=== PATIENT | male | born 1980 ===

== ENCOUNTER 2020-09-28 07:54 | Day surgery (SDC) | payer MEDICARE, MEDICAID ==
--- NOTE | 2020-09-27 15:12 | PCM.PREANE ---
Preanesthetic Assessment - Procedure Proposed Procedure: Left thumb cyst excision - Anesthesia/Transfusion/Family Hx Anesthesia History: Prior Anesthesia Without Reaction Family History of Anesthesia Reaction: No Transfusion History: No Prior Transfusion(s) Intubation History: Unknown - Review of Systems General: No Symptoms Pulmonary: No Symptoms Cardiovascular: No Symptoms Gastrointestinal: No Symptoms Neurological: No Symptoms Other: Reports: None - Physical Assessment NPO Status Date: 10/29/19 NPO Status Time: 22:00 Vital Signs: 132/86 100% RA 97.3 20 HR 74 Height: 1.68 m Weight: 64.5 kg ASA Class: 1 Mental Status: Alert & Oriented x3 Thyro-Mental Finger Breadths: 2 Mouth Opening Finger Breadths: 2 ROM/Head Extension: Full Lungs: Clear to Auscultation, Normal Respiratory Effort Cardiovascular: Regular Rate, Regular Rhythm - Allergies Allergies/Adverse Reactions: Allergies Allergy/AdvReac Type Severity Reaction Status Date / Time No Known Allergies Allergy Verified 09/27/20 14:20 - Blood Blood Available: No Product(s) Available: None - Anesthesia Plan Pre-Op Medication Ordered: None - Acknowledgements Anesthesia Type Planned: RUBIN, MAC Pt an Appropriate Candidate for the Planned Anesthesia: Yes Alternatives and Risks of Anesthesia Discussed w Pt/Guardian: Yes Pt/Guardian Understands and Agrees with Anesthesia Plan: Yes PreAnesthesia Questionnaire HEENT History: Reports: Impaired Vision Other HEENT History: Blind Gastrointestinal History: Reports: GERD - Past Surgical History HEENT Surgical History: Reports: Oral Surgery - SUBSTANCE USE Tobacco Use Status *Q: Never Tobacco User Tobacco Use Within Last Twelve Months: No Second Hand Smoke Exposure: No Days Per Week of Alcohol Use: 0 Number of Drinks Per Day: 0 Total Drinks Per Week: 0 Recreational Drug Use History: No - CURRENT (IN HOUSE) MEDS Current Meds: Current Medications Lactated Ringer's (Ringers, Lactated) 1,000 mls @ 125 mls/hr IV ASDIRECTED AMANDA Stop: 09/28/20 23:00 Lidocaine/Sodium Bicarbonate (Lidocaine 1%/Sod Bicarbonate In Ns 8.4% 1 Ml Syringe) 0.25 ml IDERM ONETIME PRN PRN Reason: Prior to IV Start Stop: 09/28/20 18:00 Sodium Chloride (Sodium Chloride 0.9% 10 Ml Syringe) 10 ml FLUSH ASDIRECTED PRN PRN Reason: Keep Vein Open Stop: 09/28/20 18:00
[~2020-09-28 07:54] MED LIST: Lactated Ringers 1,000 ML IV SCH; Lidocaine 0.5% 50 ML SDV ONE; Lidocaine 1%/Sod Bicarbonate in NS 8.4% 1 ML Syringe IDERM PRN; Midazolam 1 MG/ML 2 ML SDV ONE; Propofol 200 MG/20 ML SDV ONE; Sodium Bicarbonate 8.4% 50 MEQ/50 ML SDV ONE; Sodium Chloride 0.9% 10 ML Syringe FLUSH PRN; fentaNYL 100 MCG/2 ML SDV ONE
[2020-09-28] MEDS ORDERED: Bupivacaine 0.25% 10 ML SDV ONE ×2 (09:15→10:05)
[2020-09-28] MEDS ORDERED: ceFAZolin 1 GM Vial ONE (09:58)
[2020-09-28] MEDS ORDERED: Lactated Ringers 1,000 ML ONE (10:19)
--- NOTE | 2020-09-28 10:37 | PCM48HPAN ---
Post Anesthesia Note - EVALUATION WITHIN 48HRS OF ANESTHETIC Vital Signs in Normal Range: Yes Patient Participated in Evaluation: Yes Respiratory Function Stable: Yes Airway Patent: Yes Cardiovascular Function Stable: Yes Hydration Status Stable: Yes Pain Control Satisfactory: Yes Nausea and Vomiting Control Satisfactory: Yes Mental Status Recovered: Yes Vital Signs: Last Vital Signs Temp 97.3 F 09/28/20 08:00 Pulse 75 09/28/20 08:00 Resp 16 09/28/20 08:00 BP 132/86 09/28/20 08:00 Pulse Ox 98 09/28/20 08:00 Vital signs at 1029: BP 105/65 HR 70 RR 16 97.2 100% RA - COMMENTS/OBSERVATIONS Free Text/Narrative:: Patient denying pain and nausea at this time.
--- NOTE | 2020-09-29 06:55 | OR ---
DATE OF OPERATION: 09/28/2020 SURGEON: Bari Galdamez MD PREOPERATIVE DIAGNOSIS: Left thumb mass. 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 WOOD FURNITURE ASSEMBLER: Clarissa Morrell. INDICATION: The patient is a pleasant 40-year-old gentleman with symptomatic mass in his left thumb. After discussing risks, benefits, alternatives of both conservatives as well as surgical treatment, the patient verbalized understanding and wished to proceed with surgery. DESCRIPTION OF PROCEDURE: The patient was brought to the operating room, underwent a Arkwright blockade. Left upper extremity was prepped and draped in standard orthopedic fashion. Surgical pause was performed identifying the appropriate patient and appropriate extremity to be operated upon. Preoperative antibiotics were given. He had a Ann-style incision over the radial border of the mass. It was extended from the IP flexor crease down about the first webspace. Sharp dissection was carried down to the skin and subcutaneous tissue. Hemostasis was obtained. Started dorsally, we carefully dissected around this dorsally. We then carefully dissected volarly, identified the radial neurovascular bundle. We identified and protected them. We then divided the fascial attachments to the underlying soft tissues and mass was removed in one piece without violating the capsule. Wound was irrigated. Skin was closed with 5-0 nylon. The patient was placed in a soft dressing and brought to the recovery in satisfactory condition. The specimen was sent to the pathology. ANESTHESIA: ESTIMATED BLOOD LOSS: MMODAL /[id number]
== END 2020-09-28 11:20 | disposition home or self-care (01) ==
LOC: JD.SDS 07:54
PROVIDERS: ATTEND Orthopaedic Surgery
DX: D48.1 Neoplasm of uncertain behavior of connective and other soft tissue (principal)
CPT/HCPCS: 26160; J0690; J2250; J2704; J3010; J3490; J7120; 01810